=== PATIENT | female | born 1980 | race Caucasian/White ===

== ENCOUNTER 2017-12-29 03:19 | Emergency (ER) | END 2017-12-29 03:50 | disposition left against medical advice (07) ==

== ENCOUNTER 2019-01-28 00:36 | Emergency (ER) | payer OTHER ==
[~2019-01-28] VITALS: Ht 167.6 cm; Wt 88.7 kg
[2019-01-28 00:53] VITALS: Ht 167.6 cm; Wt 88.7 kg
--- NOTE | 2019-01-28 04:23 | ERD ---
ER Documentation Chief Complaint Chief Complaint RIGHT RIB PAIN X 9 HRS, PELVIC PAIN X 3 DAYS HPI 38-year-old female presents with complaint of pain in the right rib area for last 9 hours in addition to intermittent pelvic pain for the past 3 days. States that she is a history of fibroid surgery which was done December 04. States that after the surgery she experience some leg edema which has since resolved. States that she had a very heavy period which ended 3 days ago. Denies any current pelvic or abdominal pain. States that the rib pain started when she was cleaning a bathtub and has persisted. States that breathing deeply increases the pain. Denies any shortness of breath, hemoptysis, malignancy, recent immobility, current leg pain or edema. ROS All systems reviewed and are negative except as per history of present illness. Medications Home Meds Active Scripts Ibuprofen* (Motrin*) 600 Mg Tab, 600 MG PO Q6 for chest pain, #30 TAB Prov:CRISTIANA FELIPE 01/28/19 Allergies Allergies: Coded Allergies: No Known Allergy (Unverified , 12/29/17) PMhx/Soc Hx Cardiac Disorders: Yes (HTN) Hx Miscellaneous Medical Probl: Yes (FIBROID EMBOLIZATION ) Hx Alcohol Use: No Hx Substance Use: No Hx Tobacco Use: Yes Smoking Status: Current every day smoker FmHx Family History: No diabetes, No coronary disease, No other Physical Exam Vitals Vital Signs Date Temp Pulse Resp B/P (MAP) Pulse Ox O2 O2 Flow FiO2 Time Delivery Rate 01/28/19 98.0 90 18 134/80 98 Room Air 08:14 (98) 01/28/19 100.7 126 22 146/82 100 00:53 (103) Physical Exam Const: No acute distress Head: Atraumatic Eyes: Normal Conjunctiva ENT: Normal External Ears, Nose and Mouth. Neck: Full range of motion. No meningismus. Resp: Clear to auscultation bilaterally Cardio: Regular rate and rhythm, no murmurs. Movement of the right arm elicits pain in the rib area. There is no tenderness to palpation over the anterior chest wall. Abd: Soft, non tender, non distended. Normal bowel sounds Skin: No petechiae or rashes Back: No midline or flank tenderness Ext: No cyanosis, or edema Neur: Awake and alert Psych: Normal Mood and Affect Result Diagram: 01/28/19 0412 01/28/19 0412 Results 24 hrs Laboratory Tests Test 01/28/19 04:12 01/28/19 04:13 White Blood Count 7.0 10^3/ul Red Blood Count 4.38 10^6/ul Hemoglobin 11.1 g/dl Hematocrit 36.2 % Mean Corpuscular Volume 82.6 fl Mean Corpuscular Hemoglobin 25.3 pg Mean Corpuscular Hemoglobin Concent 30.7 g/dl Red Cell Distribution Width 15.8 % Platelet Count 346 10^3/UL Mean Platelet Volume 11.8 fl Immature Granulocytes % 0.400 % Neutrophils % 39.2 % Lymphocytes % 48.4 % Monocytes % 9.2 % Eosinophils % 2.2 % Basophils % 0.6 % Nucleated Red Blood Cells % 0.0 /100WBC Immature Granulocytes # 0.030 10^3/ul Neutrophils # 2.7 10^3/ul Lymphocytes # 3.4 10^3/ul Monocytes # 0.6 10^3/ul Eosinophils # 0.2 10^3/ul Basophils # 0.0 10^3/ul Nucleated Red Blood Cells # 0.0 10^3/ul D-Dimer 727.28 ng/ml D-Dimer Comment Urine Color YELLOW Urine Clarity CLOUDY Urine pH 7.0 Urine Specific [place] 1.018 Urine Ketones NEGATIVE mg/dL Urine Nitrite NEGATIVE mg/dL Urine Bilirubin NEGATIVE mg/dL Urine Urobilinogen NEGATIVE mg/dL Urine Leukocyte Esterase NEGATIVE [place]/ul Urine Microscopic RBC 1 /HPF Urine Microscopic WBC 0 /HPF Urine Squamous Epithelial Cells FEW /HPF Urine Mucus MODERATE /HPF Urine Hemoglobin NEGATIVE mg/dL Urine Glucose NEGATIVE mg/dL Urine Total Protein NEGATIVE mg/dl Sodium Level 142 mmol/L Potassium Level 3.7 mmol/L Chloride Level 107 mmol/L Carbon Dioxide Level 27 mmol/L Anion Gap 8 Blood Urea Nitrogen 9 mg/dl Creatinine 0.54 mg/dl Est Glomerular Filtrat Rate mL/min > 60 mL/min Glucose Level 111 mg/dl Calcium Level 9.9 mg/dl Total Bilirubin 0.2 mg/dl Direct Bilirubin 0.00 mg/dl Indirect Bilirubin 0.2 mg/dl Aspartate Amino Transf (AST/SGOT) 29 IU/L Alanine Aminotransferase (ALT/SGPT) 28 IU/L Alkaline Phosphatase 106 IU/L Troponin I < 0.012 ng/ml Total Protein 8.7 g/dl Albumin 4.4 g/dl Globulin 4.30 g/dl Albumin/Globulin Ratio 1.02 Lipase 67 U/L POC Beta HCG, Qualitative NEGATIVE Current Medications Medications Dose Sig/Yari Start Time Status Last (Trade) Ordered Route PRN Stop Time Admin Dose Reason Admin 1 tab ONCE ONCE 01/28/19 DC 01/28/19 Acetaminophen PO 04:30 04:18 / 01/28/19 04:31 Hydrocodone Bitart ([place] ()) Sodium 1,000 ml @ Q1H STAT 01/28/19 DC 01/28/19 Chloride 1,000 mls/hr IV 05:48 06:05 01/28/19 06:47 Morphine 1 mg ONCE STAT 01/28/19 DC 01/28/19 Sulfate IV 05:54 06:07 (morphine) 01/28/19 05:55 Ondansetron 2 mg ONCE STAT 01/28/19 DC 01/28/19 HCl (Zofran IV 05:54 06:07 Inj) 01/28/19 05:55 Iohexol 150 ml STK-MED 01/28/19 DC (Omnipaque ONCE .ROUTE 06:10 300mg/ ml) 01/28/19 06:11 Sodium 100 ml @ ud STK-MED 01/28/19 DC Chloride ONCE .ROUTE 06:11 01/28/19 06:12 IV Flush 10 ml STK-MED 01/28/19 DC 01/28/19 (NS 10 ml) ONCE .ROUTE 07:14 07:38 01/28/19 07:15 Sodium 100 ml @ ud STK-MED 01/28/19 DC 01/28/19 Chloride ONCE .ROUTE 07:14 07:39 01/28/19 07:15 Iohexol 100 ml @ ud STK-MED 01/28/19 DC 01/28/19 ONCE .ROUTE 07:14 07:39 01/28/19 07:15 Procedures/MDM DIAGNOSTIC IMAGING REPORT Patient: ROBERTA RONQUILLO : 1980 Age: 38 Sex: F MR #: [id number] DOS: 01/28/19 0401 Ordering MD: CRISTIANA FELIPE Location: [facility] Room/Bed: PROCEDURE: XR Chest. CLINICAL INDICATION: Rib pain TECHNIQUE: AP portable chest was obtained. COMPARISON: None. FINDINGS: Cardiomediastinal silhouette is normal. Pulmonary vasculature is normal. Lungs and costophrenic angles are clear. Bones soft tissues are unremarkable. IMPRESSION: No evidence of acute cardiopulmonary disease. RPTAT:AAJJ Physician Fito Date Time Electronically viewed and signed by Sara Graham Physician on 01/28/2019 05:24 BM/ CC: CRISTIANA FELIPE DIAGNOSTIC IMAGING REPORT Patient: ROBERTA RONQUILLO : 1980 Age: 38 Sex: F MR #: [id number] DOS: 01/28/19 0549 Ordering MD: CRISTIANA FELIPE Location: [facility] Room/Bed: PROCEDURE: CT pulmonary angiogram. CLINICAL INDICATION: Chest pain and shortness of breath. TECHNIQUE: CT scan of the chest and CT pulmonary angiogram was performed utilizing axial tomographic imaging from the thoracic inlet to the domes of the diaphragm. High-resolution thin slice coronal and sagittal imaging was obtained from the axial source images. 3-D volumetric rendered post processing was performed as well. The patient was examined following the uncomplicated intravenous administration of 100 cc of Omnipaque 350. The images were reviewed on a PACS workstation. The total exam CTDI equals 17.79 and the total exam DLP equals 721.40 mGy-cm. One or more of the following dose reduction techniques were used: Automated exposure control, adjustment of the mA and / or kV according to patient size, or use of iterative reconstruction technique. DICOM images are available. COMPARISON: No prior studies are available for comparison. FINDINGS: No focal airspace opacity, pleural effusion, or pneumothorax is seen. No pulmonary nodules or masses are identified. There is no abnormal interstitial thickening. The trachea and proximal bronchi are unremarkable. The visualized thyroid is unremarkable. The heart is grossly normal in size and configuration. The aorta demonstrates normal branching pattern. The aorta is normal in caliber and contains vascular calcifications. There is no evidence of aortic dissection. The central pulmonary arteries are normal in caliber. The attenuation of the central pulmonary arteries measures 217 HU. No filling defects are identified within the proximal pulmonary arterial branches to suggest pulmonary embolism. No hilar, mediastinal, or axillary lymphadenopathy is identified. Limited evaluation of the upper abdomen is unremarkable. The osseous structures are unremarkable. IMPRESSION: 1. Limited evaluation for pulmonary embolus secondary to timing of contrast injection. No central embolus is seen. 2. The lungs are clear. RPTAT: HH .Kaylan Baker MD, MD Date Time Electronically viewed and signed by .Kaylan Baker MD, on 01/28/2019 07:51 .G/ CC: CRISTIANA FELIPE [id number] DIAGNOSTIC IMAGING REPORT Patient: ROBERTA RONQUILLO : 1980 Age: 38 Sex: F MR #: [id number] DOS: 01/28/19 0401 Ordering MD: CRISTIANA FELIPE Location: [facility] Room/Bed: PROCEDURE: Pelvic ultrasound color-flow Doppler of the adnexa. CLINICAL INDICATION: Pain TECHNIQUE: Multiple sagittal, oblique and transverse real time images were obtained of the lower abdomen and pelvis using a transabdominal as well a transvaginal approach. Color-flow Doppler of the adnexa was performed. COMPARISON: None. FINDINGS: The uterus is normal limits in size measuring 9.75 x 4.14 x 5.61 cm. Within the superior right uterus is a 3.4 x 3.8 x 4.0 cm leiomyoma. Small Nabothian cyst. Remainder the myometrium is heterogeneous without other focal lesions. Endometrium homogeneous without focal lesion normal thickness maximal AP di ameter 0.62 cm. The left ovary is enlarged measuring 4.51 x 3.61 x 3.18 cm containing a 2.1 x 1.3 x 2.0 cm cyst. Right ovary normal in size measuring 3.25 x 1.94 x 2.56 cm without mass. Flow to both ovaries without ultrasonic evidence of ovarian torsion. No adnexal masses or free fluid para IMPRESSION: 1. Normal size uterus with 3.4 x 3.8 x 4.0 cm leiomyoma superior right uterus and small Nabothian cyst. 2. Unremarkable endometrium. 3. Enlarged left ovary containing a 2.1 cm cyst. No other ovarian masses bilaterally. No ultrasonic evidence of ovarian torsion bilaterally. 4. No adnexal masses or free fluid. RPTAT:AAJJ Physician Fito Date Time Electronically viewed and signed by Sara Graham Physician on 01/28/2019 05:39 BM/ CC: CRISTIANA FELIPE [id number]] EKG: Rate/Rhythm: Normal Sinus Rhythm QRS, ST, T-waves: No changes consistent w/ acute ischemia Impression: No evidence of ischemia or arrhythmia Patient had complained of dyspnea, chest pain, and also stated that she experienced some lower extremity swelling in addition to surgery couple months ago, Therefore PE was not able to be excluded according to PERC criteria and Wells criteria did show there was some risk. CXR and EKG were WNL. Decision was made to do a d-dimer and results were elevated. I discussed the case with Dr. Mcleod and he said that given the patient's history and lab results, patient would need CT angiogram of the chest. Patient was signed out to Yvan Brady PA-C, pending results of CT. I have low suspicion for acute coronary syndrome, pulmonary embolism, aortic dissection, AAA, pneumothorax, esophageal rupture, pericarditis, myocarditis, or pneumonia based on EKG, imaging, labs, patient history and exam. Patient most likely suffering from musculoskeletal injury incurred while cleaning. Departure Diagnosis: Primary Impression: Chest pain Chest pain type: chest pain on breathing Qualified Codes: R07.1 - Chest pain on breathing Additional Impression: Pelvic pain Condition: Stable CRISTIANA FELIPE Jan 28, 2019 04:23
[2019-01-28] MEDS ORDERED: HYDROCODONE/APAP (10/325) TAB PO ONE (04:30)
[2019-01-28] MEDS ORDERED: SOD CHLORIDE 0.9% 1,000 ML IV STA (05:48)
[2019-01-28] MEDS ORDERED: morphine 2 MG INJ IV STA (05:54)
[2019-01-28] MEDS ORDERED: ONDANSETRON 4 MG INJ IV STA (05:54)
[2019-01-28] MEDS ORDERED: IOHEXOL 300MG/ML 150 ML BTL ONE (06:10)
[2019-01-28] MEDS ORDERED: SOD CHLORIDE 0.9% 100 ML ONE ×2 (06:11→07:14)
[2019-01-28] MEDS ORDERED: IBUP-1542 PO (06:50)
[2019-01-28] MEDS ORDERED: IOHEXOL 100 ML ONE (07:14)
[2019-01-28 08:14] VITALS: BP 134/80; PULSE 90; RESP 18
== END 2019-01-28 08:17 | disposition home or self-care (01) ==
LOC: FTE 00:36
DX: R07.1 Chest pain on breathing (principal); R10.2 Pelvic and perineal pain; F17.210 Nicotine dependence, cigarettes, uncomplicated
CPT/HCPCS: 71045; 71275; 76830; 76856; 80053; 81001; 81025; 83690; 84484; 85025; 85378; 87086; 87400; 93005; 96361; 96374; 96375; J2270; J2405; J7030; Q9967; Z7502; Z7610